=== PATIENT | female | born 1985 ===

== ENCOUNTER 2023-11-09 00:53 | Inpatient (IN) ==
[2023-11-09] MEDS ORDERED: Promethazine INJ(RESTRICTED) 25 MG/ML 1 ml VIAL IV PRN (02:07)
[2023-11-09] MEDS ORDERED: Lidocaine 1% VIAL 10 MG/ML 30 ML VIAL INJ PRN (02:07)
[2023-11-09 03:31] LABS: ABS Basophils 0.1 10^3/uL (0.0-0.1); ABS Eosinophils 0.1 10^3/uL (0.0-0.5); ABS Lymphocytes 2.4 10^3/uL (1.0-4.8); ABS Monocytes 0.9 10^3/uL (0.0-0.9); ABS Neutrophils 8.5 10^3/uL (1.5-7.6); ABS Nucleated RBC 0.02 10^3/ul; Eosinophil % 0.5 %; Hematocrit 37.7 % (35-45); Hemoglobin 12.4 g/dL (11.5-14.3); Lymphocyte % 19.8 %; Mean Corpuscular Hemoglobin 27.4 pg (27-33); Mean Platelet Volume 8.7 fL (7.5-11.2); Nucleated Red Blood Cells % 0.1 %/100WBC (0.0-0.8); Platelet Count 242 10^3/uL (150-450); Red Blood Count 4.54 10^6/uL (3.63-4.92); Red Cell Distribution Width 17.9 % (12-17)
[2023-11-09 05:13] LABS: Urine Benzodiazepine Screen None Detected (None Detect); Urine Opiates Screen None Detected (None Detect)
[2023-11-09] MEDS: Lactated Ringers 1000 ml BAG 1,000 ML IV ONE (06:02)
[2023-11-09] MEDS: OBEPIDURAL (200 ML) 200 ML EPIDURAL ONE (07:03)
[2023-11-09] MEDS ORDERED: Sodium Citrate/Citric Acid LIQ 15 ML UDC PO PRN (07:13)
[2023-11-09] MEDS ORDERED: Phenylephrine 40 mcg/mL 10mL (400mcg) SYRINGE IV PUSH PRN ×2 (07:13)
[2023-11-09 08:06] LABS: Urine Appearance Clear; Urine Bilirubin Negative (Negative); Urine Blood Negative (Negative); Urine Color Yellow; Urine Glucose Negative (Negative); Urine Ketones Negative (Negative); Urine Nitrite Negative (Negative); Urine Protein Negative (Negative); Urine Specific Gravity 1.015 (1.002-1.030); Urine Urobilinogen Negative (Negative)
[2023-11-09] MEDS: Oxytocin in LR 20,000 MILLI.UNIT/1,000 ML BAG IV SCH ×2 (12:05→19:47)
[2023-11-09] MEDS: Lactated Ringers 1000 ml BAG 1,000 ML IV SCH (14:05)
[2023-11-09] MEDS ORDERED: Lactated Ringers 1000 ml BAG 1,000 ML IV SCH (17:00)
[2023-11-09] MEDS: Dibucaine 1% OINT 28.35 GM TUBE PR PRN (18:37)
[2023-11-09] MEDS: Witch Hazel PAD JAR TOPICAL PRN (18:37)
[2023-11-10 08:03] LABS: ABS Eosinophils 0.1 10^3/uL (0.0-0.5); ABS Lymphocytes 2.6 10^3/uL (1.0-4.8); ABS Monocytes 1.4 10^3/uL (0.0-0.9); ABS Neutrophils 11.2 10^3/uL (1.5-7.6); ABS Nucleated RBC 0.01 10^3/ul; Eosinophil % 0.5 %; Hemoglobin 9.2 g/dL (11.5-14.3); Lymphocyte % 16.8 %; Mean Corpuscular Hemoglobin 27.1 pg (27-33); Mean Corpuscular Hgb Conc 32.9 g/dL (31-36); Mean Corpuscular Volume 82.2 fL (80-97); Mean Platelet Volume 8.9 fL (7.5-11.2); Nucleated Red Blood Cells % 0.1 %/100WBC (0.0-0.8); Platelet Count 170 10^3/uL (150-450); Red Blood Count 3.41 10^6/uL (3.63-4.92); Red Cell Distribution Width 17.6 % (12-17); White Blood Count 15.3 10^3/uL (3.8-11.8)
[2023-11-10] MEDS: RHO D Immune Globulin (HUMAN) 300 MCG = 1,500 I.U. INJ IM PRN (11:56)
[2023-11-10] MEDS: Lactated Ringers 1000 ml BAG 1,000 ML IV ONE (23:27)
[2023-11-10] MEDS: OBEPIDURAL (200 ML) 200 ML EPIDURAL SCH (23:27)
[2023-11-10] MEDS: fentaNYL 100 mcg/2 ml 50 MCG/ML VIAL ONE (23:27)
[2023-11-10] MEDS: Lidocaine 1.5% EPI 1:200,000 30 ML SDV ONE (23:27)
[2023-11-10] MEDS: Lactated Ringers 1000 ml BAG 1,000 ML IV SCH (23:28)
[2023-11-10] MEDS: Buffered Lidocaine 1% SYRIN 1 ml INTRADERM ONE (23:28)
[2023-11-11 08:17] VITALS: BP 117/67
[2023-11-11] MEDS ORDERED: Glycerin ADULT 2.4 gm SUPP PR ONE (12:23)
== END 2023-11-11 15:48 | disposition home or self-care (01) | DRG 807 ==
LOC: MCHOBOUT 00:53 → MCHOB 02:25
PROVIDERS: ADMIT Registered Nurse; ATTEND Midwife